=== PATIENT | female | born 1975 ===

== ENCOUNTER 2022-02-10 10:04 | Emergency (ER) | payer SELFPAY ==
[2022-02-10 10:18] VITALS: BP 99/65
[2022-02-10] MEDS ORDERED: HYDROcodone/ACETAMINOPHEN 5-325 MG TAB PO ONE (11:23)
[2022-02-10] MEDS ORDERED: IBUPROFEN 600 MG TAB PO ONE (11:23)
[2022-02-10] MEDS ORDERED: ACETAMINOPHEN 325 MG/10.15 ML ORAL LIQD UNIT DOSE PO ONE (11:24)
--- NOTE | 2022-02-10 11:29 | Emergency Department Report ---
ED General Adult HPI - General Chief complaint: Pain General Stated complaint: NECK PAIN/COUGH Time Seen by Provider: 02/10/22 11:05 Source: patient Mode of arrival: Ambulatory Limitations: No Limitations - History of Present Illness Initial comments: 46-year-old female reports to the ER with complaints of body aches and bilateral neck pain. Patient reports sleeping on the streets and is homeless. Patient reports no other acute signs or symptoms. No chest pain or shortness of breath no cough. Patient has a bag of snacks and pillow with her. Severity scale (0 -10): 10 - Related Data Allergies Allergy/AdvReac Type Severity Reaction Status Date / Time amoxicillin Allergy Unknown Verified 02/10/22 10:05 Penicillins Allergy Unknown Verified 02/10/22 10:05 ED Review of Systems ROS: Stated complaint: NECK PAIN/COUGH Other details as noted in HPI Comment: All other systems reviewed and negative Musculoskeletal: other (neck pain ) ED Past Medical Hx - Past Medical History Previous Medical History?: Yes Hx Asthma: Yes Additional medical history: Thyroid, ETOH abuse, GI distress, Sinus infection - Surgical History Past Surgical History?: Yes Hx Cholecystectomy: Yes Hx Appendectomy: Yes Additional Surgical History: Tonsil removed, Liver biopsy, ED Physical Exam - General Limitations: No Limitations General appearance: alert, in no apparent distress, other (disheveled appearance) - Head Head exam: Present: atraumatic, normocephalic - Eye Eye exam: Present: normal appearance - ENT ENT exam: Present: mucous membranes moist - Neck Neck exam: Present: normal inspection, tenderness (Muscular tenderness. No cervical tenderness noted.), full ROM - Respiratory Respiratory exam: Present: normal lung sounds bilaterally. Absent: respiratory distress, wheezes, rales, rhonchi, stridor - Cardiovascular Cardiovascular Exam: Present: regular rate, normal rhythm. Absent: systolic murmur, diastolic murmur, rubs, gallop - GI/Abdominal GI/Abdominal exam: Present: soft, normal bowel sounds - Extremities Exam Extremities exam: Present: normal inspection - Back Exam Back exam: Present: normal inspection - Neurological Exam Neurological exam: Present: alert, oriented X3 - Psychiatric Psychiatric exam: Present: normal affect, normal mood - Skin Skin exam: Present: warm, dry, intact, normal color. Absent: rash ED Course Vital Signs 02/10/22 10:16 Temperature 98.3 F Pulse Rate 78 Respiratory 22 Rate Blood Pressure 99/65 [Right] O2 Sat by Pulse 98 Oximetry ED Medical Decision Making - Medical Decision Making 46-year-old female reports to the ER with complaints of body aches and bilateral neck pain. Patient reports sleeping on the streets and is homeless. Patient reports no other acute signs or symptoms. No chest pain or shortness of breath no cough. Patient has a bag of snacks and pillow with her. Patient has bilateral neck tenderness and is muscular in nature. No cervical spine tenderness noted. Range of motion intact. No other acute clinical signs or symptoms no physical exam. No imaging is needed at this time. As patient has been sleeping on the street that is causing her neck pain. Patient to receive Tylenol and Motrin here in the ER. Patient stable for discharge home. No further work-up is needed at this time. Patient agrees with plan of care verbalized understanding. Vital Signs 02/10/22 10:16 Temperature 98.3 F Pulse Rate 78 Respiratory 22 Rate Blood Pressure 99/65 [Right] O2 Sat by Pulse 98 Oximetry Critical care attestation.: If time is entered above; I have spent that time in minutes in the direct care of this critically ill patient, excluding procedure time. ED Disposition Clinical Impression: Neck pain, Malingerer Disposition: 01 HOME / SELF CARE / HOMELESS Is pt being admited?: No Condition: Stable Instructions: Musculoskeletal Pain
[2022-02-10] MEDS ORDERED: ACETAMINOPHEN 325 MG TAB PO ONE (11:30)
== END 2022-02-10 11:40 | disposition home or self-care (01) ==
LOC: ED 10:04
DX: M54.2 Cervicalgia (principal); Z76.5 Malingerer [conscious simulation]; J45.909 Unspecified asthma, uncomplicated; Z90.49 Acquired absence of other specified parts of digestive tract; Z98.890 Other specified postprocedural states; Z88.0 Allergy status to penicillin; Z88.1 Allergy status to other antibiotic agents
CPT/HCPCS: 99282

== ENCOUNTER 2022-02-12 11:51 | Emergency (ER) | payer MEDICAID ==
[2022-02-12 12:33] VITALS: BP 110/60
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
[2022-02-12] MEDS ORDERED: ACETAMINOPHEN W/CODEINE 300-30 MG TAB PO ONE (20:20)
--- NOTE | 2022-02-12 20:36 | Cat Scan Report ---
CT head/brain wo con INDICATION / CLINICAL INFORMATION: 46 years Female; ruiz. TECHNIQUE: Routine CT head without contrast. All CT scans at this location are performed using CT dos e reduction for ALARA by means of automated exposure control. Motion artifact. COMPARISON: None. FINDINGS: BRAIN / INTRACRANIAL CONTENTS: No acute hemorrhage, mass effect, midline shift, hydrocephalus, or acu te, large territorial infarct. No signs of significant atrophy or chronic infarct. No significant whi te matter abnormality seen. CRANIOCERVICAL JUNCTION: No significant abnormality. ORBITS: No significant abnormality of visualized orbits. SINUSES / MASTOIDS: Prior mastoidectomy noted on the left. Mastoid air cells on the right are hypopla stic. ADDITIONAL FINDINGS: None. IMPRESSION: 1. No focal mass, hemorrhage, hydrocephalus, or acute, large territorial infarct. Signer Name: Abelino Siddiqi MD, III Signed: 02/12/2022 8:32 PM Workstation Name: [email or web address] [facility]1
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
== END 2022-02-13 07:00 | disposition home or self-care (01) ==
LOC: ED 11:51
DX: S16.1XXA Strain of muscle, fascia and tendon at neck level, initial encounter (principal); J45.909 Unspecified asthma, uncomplicated; Z91.09 Other allergy status, other than to drugs and biological substances; X58.XXXA Exposure to other specified factors, initial encounter; Y93.89 Activity, other specified; Y92.89 Other specified places as the place of occurrence of the external cause; Y99.8 Other external cause status
CPT/HCPCS: 70450; 72125; 99283